=== PATIENT | male | born 1980 | race Caucasian/White ===

== ENCOUNTER 2017-07-27 12:47 | Emergency (ER) | payer OTHER ==
[~2017-07-27] VITALS: Ht 177.8 cm; Wt 86.2 kg
[2017-07-27 12:55] VITALS: BP 121/85
[2017-07-27 13:39] LABS: INFLUENZA A PATIENT NEGATIVE (NEGATIVE); INFLUENZA B PATIENT NEGATIVE (NEGATIVE)
--- NOTE | 2017-07-27 13:44 | RAD ---
Indication: Cough and congestion for 8 days. Technique: Two-view chest radiograph was obtained. No comparison is available. Findings: The lungs are clear. The cardiopulmonary silhouette is within normal limits. There is no pleural effusion. There are minimal degenerative changes in the spine. Impression: No acute thoracic findings.
[2017-07-27] MEDS ORDERED: AMOX1TAB61 PO (14:13)
[2017-07-27] MEDS ORDERED: ALBU8.5H8 INH (14:13)
[2017-07-27] MEDS ORDERED: BENZ100C PO (14:13)
[2017-07-27] MEDS ORDERED: HYDR115S2 PO (14:13)
--- NOTE | 2017-07-27 14:13 | PHYS DOC ---
Adult General Chief Complaint Chief Complaint: COUGH HPI HPI 37-year-old nonsmoking male patient without medical problems complaining of cough and congestion and fever for the last 8 days. Patient states he had productive cough with yellow sputum that changed to the right coughs and had episodes of fever a few days ago that resolved. Patient complaining of chest soreness during cough and shortness of breath and generalized weakness and decrease of level of energy. Patient complaining of sore throat and earache and myalgia. Patient denies vomiting and diarrhea. Patient did not seek medical attention. Review of Systems Review of Systems Constitutional: Reports fever and chills Eyes: Denies change in visual acuity, redness, or eye pain [] HENT: Denies nasal congestion and sore throat[] Respiratory: Reports cough and shortness of breath Cardiovascular: No additional information not addressed in HPI [] GI: Denies abdominal pain, nausea, vomiting, bloody stools or diarrhea [] : Denies dysuria or hematuria [] Musculoskeletal: Denies back pain or joint pain [] Integument: Denies rash or skin lesions [] Neurologic: Denies headache, focal weakness or sensory changes [] Endocrine: Denies polyuria or polydipsia [] All other systems were reviewed and found to be within normal limits, except as documented in this note. Physical Exam Physical Exam Constitutional: Well developed, well nourished, mild distress, non-toxic appearance. [] HENT: Normocephalic, atraumatic, bilateral external ears normal, pharyngeal erythema, oropharynx moist, no oral exudates, nose normal. [] Eyes: PERRLA, EOMI, conjunctiva normal, no discharge. [] Neck: Normal range of motion, no tenderness, supple, no stridor. [] Cardiovascular:Heart rate regular rhythm, no murmur [] Lungs & Thorax: Bilateral breath sounds clear to auscultation [] Abdomen: Bowel sounds normal, soft, no tenderness, no masses, no pulsatile masses. [] Skin: Warm, dry, no erythema, no rash. [] Back: No tenderness, no CVA tenderness. [] Extremities: No tenderness, no cyanosis, no clubbing, ROM intact, no edema. [] Neurologic: Alert and oriented X 3, normal motor function, normal sensory function, no focal deficits noted. [] Psychologic: Affect normal, judgement normal, mood normal. [] Current Patient Data Lab Results Laboratory Tests Test 07/27/17 12:59 Influenza Type A (Rapid) Negative (NEGATIVE) Influenza Type B (Rapid) Negative (NEGATIVE) EKG EKG [] Radiology/Procedures Radiology/Procedures [ [place] [id number] IMAGING REPORT Signed PATIENT: EDGAR POLANCO ACCOUNT: [id number] : 1980 LOCATION: ER AGE: 37 SEX: M EXAM STATUS: REG ER ORD. PHYSICIAN: LIBRA GRAMAJO MD REASON: cough and congestion PROCEDURE: CHEST PA & LATERAL Indication: Cough and congestion for 8 days. Technique: Two-view chest radiograph was obtained. No comparison is available. Findings: The lungs are clear. The cardiopulmonary silhouette is within normal limits. There is no pleural effusion. There are minimal degenerative changes in the spine. Impression: No acute thoracic findings. DICTATED AND SIGNED BY: ALEKSANDRA BARDALES MD DATE: 07/27/17 1341 CC: VALENTINA WALLS DO; LIBRA GRAMAJO MD ~ ] Course & Med Decision Making Course & Med Decision Making Pertinent Labs and Imaging studies reviewed. (See chart for details) Evolution of patient in ER showed 37-year-old male patient with complaining of cough and congestion and upper respiratory symptoms for 8 days. Patient had unremarkable physical exam and negative flu and chest x-ray. Plan discharge patient home to diagnose of bronchitis. [] Dragon Disclaimer Dragon Disclaimer This electronic medical record was generated, in whole or in part, using a voice recognition dictation system. Departure Departure: Impression: Primary Impression: Acute bronchitis Disposition: HOME, SELF-CARE (aT 1410) Condition: STABLE Referrals: VALENTINA WALLS DO (PCP) Patient Instructions: Acute Bronchitis Additional Instructions: Drink plenty of liquids Follow-up with your primary care physician in 5-7 days Return to emergency room if not getting better Scripts Hydrocodone/Chlorphen P-Stirex (Tussionex Pennkinetic Susp) 115 Ml Aminata.er.12h 5 ML PO BID, #120 ML Prov: LIBRA GRAMAJO MD 07/27/17 Albuterol Sulfate (PROAIR HFA INHALER) 8.5 Gm Hfa.aer.ad 2 PUFF INH PRN Q6HRS Y for SHORTNESS OF BREATH, #1 INHALER 0 Refills Prov: LIBRA GRAMAJO MD 07/27/17 Benzonatate (TESSALON PERLE) 100 Mg Capsule 1 CAP PO TID, #30 CAP Prov: LIBRA GRAMAJO MD 07/27/17 Amoxicillin/Potassium Clav (AUGMENTIN 875-125 TABLET) 1 Each Tablet 1 TAB PO BID, #14 TAB Prov: LIBRA GRAMAJO MD 07/27/17 LIBRA GRAMAJO MD Jul 27, 2017 14:13
== END 2017-07-27 14:20 | disposition home or self-care (01) ==
LOC: ER 12:47
DX: J20.9 Acute bronchitis, unspecified (principal); R53.1 Weakness
CPT/HCPCS: 71046; 87804; 99285